=== PATIENT | male | born 1995 | race Hispanic/Latino ===

== ENCOUNTER 2023-04-28 13:24 | Emergency (ER) | payer OTHER ==
[~2023-04-28] VITALS: Ht 167.6 cm; Wt 74.2 kg
[2023-04-28] MEDS ORDERED: CEPHALEXIN500 M1 PO (17:20)
[2023-04-28 17:40] VITALS: BP 140/86
== END 2023-04-28 17:40 | disposition home or self-care (01) ==
LOC: ED 13:24
DX: S51.811A Laceration without foreign body of right forearm, initial encounter (principal); W29.3XXA Contact with powered garden and outdoor hand tools and machinery, initial encounter
CPT/HCPCS: 12004; 99283-25